=== PATIENT | female | born 2000 | race American Indian/Alaskan Native ===

== ENCOUNTER 2024-01-28 07:42 | Inpatient (IN) | payer OTHER ==
[2024-01-28] MEDS ORDERED: Carboprost Tromethamine 250 MCG/1 ML Amp IM PRN (08:17)
[2024-01-28] MEDS ORDERED: Sodium Chloride 0.9% 10 ML Syringe FLUSH PRN (08:17)
[2024-01-28] MEDS ORDERED: Ondansetron 4 MG/2 ML SDV IVPUSH PRN (08:17)
[2024-01-28] MEDS ORDERED: Misoprostol 400 MCG (4 X 100 MCG TAB) RECTAL PRN (08:17)
[2024-01-28] MEDS ORDERED: Acetaminophen 325 MG Tab PO PRN (08:17)
[2024-01-28 08:45] LABS: HEMATOCRIT 37.5 % (37.0-47.0); HEMOGLOBIN 12.1 g/dL (12.0-16.0); MEAN CORPUSCULAR HGB CONC 32.3 g/dL (33.0-35.0); MEAN CORPUSCULAR VOLUME 93.1 fL (80-100); RED BLOOD CELL COUNT 4.03 10^6/uL (4.2-5.4); WHITE BLOOD CELL COUNT,WBC 12.8 10^3/uL (5.0-10.0)
[2024-01-28] MEDS: Lactated Ringers 1,000 ML IV ONE (09:02)
[2024-01-28] MEDS ORDERED: fentaNYL 100 MCG/2 ML SDV ONE (09:20)
[2024-01-28] MEDS: Lactated Ringers 1,000 ML IV SCH (09:36)
[2024-01-28] MEDS ORDERED: Phenylephrine HCl In 0.9% NaCl 1 MG/10 ML Syringe IVPUSH PRN (10:01)
[2024-01-28] MEDS ORDERED: ePHEDrine 50 MG/ML SDV IVPUSH PRN (10:01)
[2024-01-28] MEDS ORDERED: Ropivacaine 200 MG in Premix Bag 1 BAG EPIDUR SCH (10:15)
[2024-01-28] MEDS: Oxytocin/Normal Saline 30 UNIT/500 ML BAG IV SCH (12:37)
[2024-01-28] MEDS ORDERED: Simethicone 80 MG Tab.Chew PO PRN (14:48)
[2024-01-28] MEDS ORDERED: Hydrocortisone 2.5% Crm 30 GM Tube TOP PRN (14:48)
[2024-01-28] MEDS ORDERED: Oxytocin 10 Units/1 ML SDV IM PRN (14:48)
[2024-01-28] MEDS: Tranexamic Acid 1,000 MG in Sodium Chloride 0.9% 100 ML IV PRN (15:24)
[2024-01-28] MEDS: Methylergonovine 0.2 MG/1 ML Amp IM PRN (15:25)
[2024-01-28] MEDS: Ibuprofen 800 MG Tab PO SCH (16:01)
[2024-01-28] MEDS: Benzocaine/Menthol 20%-0.5% Spray 78 GM Cannister TOP PRN (18:25)
[2024-01-28] MEDS: Witch Hazel Medicated Pads 100/Jar TOP PRN (18:26)
[2024-01-28] MEDS: Lidocaine 1% 30 ML SDV INJECT ONE (18:30)
[2024-01-28] MEDS: Acetaminophen 325 MG Tab PO PRN (19:50)
[2024-01-28] MEDS: Docusate Sodium 100 MG Cap PO PRN (19:50)
[2024-01-29 06:44] LABS: HEMATOCRIT 28.5 % (37.0-47.0); HEMOGLOBIN 9.2 g/dL (12.0-16.0); MEAN CORPUSCULAR HEMOGLOBIN 30.4 pg (27.0-34.0); MEAN CORPUSCULAR HGB CONC 32.3 g/dL (33.0-35.0); MEAN CORPUSCULAR VOLUME 94.1 fL (80-100); RED BLOOD CELL COUNT 3.03 10^6/uL (4.2-5.4); WHITE BLOOD CELL COUNT,WBC 13.3 10^3/uL (5.0-10.0)
[2024-01-29] MEDS: Prenatal Multivitamin with Calcium/Folic Acid/Iron Tab PO SCH (08:45)
[2024-01-29] MEDS ORDERED: fentaNYL 100 MCG/2 ML SDV EPIDUR ONE (13:34)
== END 2024-01-30 13:00 | disposition home or self-care (01) | DRG 807 ==
LOC: DL.OBCHECK 07:42 → DL.OB 08:17 → OBSVTOIN 14:10 → DL.OB 14:10
PROVIDERS: ADMIT Family Medicine; ATTEND Family Medicine
PROC: 10D07Z6 Extraction of Products of Conception, Vacuum, Via Natural or Artificial Opening (ICD-10-PCS; principal; 2024-01-28)
PROC: 0KQM0ZZ Repair Perineum Muscle, Open Approach (ICD-10-PCS; 2024-01-28)
PROC: 3E0R3BZ Introduction of Anesthetic Agent into Spinal Canal, Percutaneous Approach (ICD-10-PCS; 2024-01-28)
PROC: 00HU33Z Insertion of Infusion Device into Spinal Canal, Percutaneous Approach (ICD-10-PCS; 2024-01-28)
DX: O12.14 Gestational proteinuria, complicating childbirth (principal); Z37.0 Single live birth; Z3A.40 40 weeks gestation of pregnancy; O70.1 Second degree perineal laceration during delivery
CPT/HCPCS: 36415; 51701; 59409; 85027; A9270-GY; C1729; J2210; J2590; J3010; J3490; J7120

== ENCOUNTER 2024-09-10 13:14 | Emergency (ER) | payer OTHER ==
[2024-09-10 13:54] LABS: APPEARANCE,URINE SLIGHTLY CLOUDY (CLEAR); BILIRUBIN,URINE NEGATIVE (NEGATIVE); COLOR,URINE YELLOW (YELLOW); GLUCOSE,URINE NEGATIVE (NEGATIVE); KETONES,URINE NEGATIVE (NEGATIVE); LEUKOCYTE ESTERASE,URINE TRACE (NEGATIVE); NITRITE,URINE NEGATIVE (NEGATIVE); OCCULT BLOOD,URINE LARGE (NEGATIVE); PH,URINE 7.5 (5.0-9.0); PROTEIN,URINE 30 (NEGATIVE); UROBILINOGEN,URINE 0.2 mg/dL (0.2-1.0)
[2024-09-10 14:02] LABS: BACTERIA,URINE FEW /HPF (0-FEW/HPF); EPITHELIAL CELLS,URINE MODERATE /HPF (NOT SEEN); WBC,URINE 0-5 /HPF (0-5/HPF)
[2024-09-10 14:03] LABS: AMORPHOUS SEDIMENT,URINE FEW /HPF (NOT SEEN)
[2024-09-10] MEDS: Ketorolac 30 MG/ML SDV IM ONE (14:29)
== END 2024-09-10 14:52 | disposition home or self-care (01) ==
LOC: DL.ED 13:14
DX: N94.6 Dysmenorrhea, unspecified (principal); Z79.899 Other long term (current) drug therapy
CPT/HCPCS: 81001; 81025; 87086; 96372; 99283; 99284; J1885

== ENCOUNTER 2024-11-16 05:39 | Emergency (ER) | payer OTHER | END 2024-11-16 07:30 | disposition home or self-care (01) | LOC: DL.ED 05:39 | DX: S01.512A Laceration without foreign body of oral cavity, initial encounter (principal); Z79.899 Other long term (current) drug therapy; W22.8XXA Striking against or struck by other objects, initial encounter | CPT/HCPCS: 99282; 99283 ==

== ENCOUNTER 2025-01-27 22:11 | Emergency (ER) | payer OTHER ==
[2025-01-27 23:30] LABS: BASOPHILS PERCENT AUTO 0.4 % (0.0-1.0); EOSINOPHILS PERCENT AUTO 0.2 % (1.0-3.0); LYMPHOCYTES PERCENT AUTO 11.4 % (20.5-50.1); MONOCYTES PERCENT AUTO 7.1 % (2-8); NEUTROPHILS PERCENT AUTO 80.9 % (42.2-75.2); PLATELET COUNT,PLT 322 10^3/uL (150-450); RED BLOOD CELL COUNT 5.17 10^6/uL (4.2-5.4); WHITE BLOOD CELL COUNT,WBC 11.4 10^3/uL (5.0-10.0)
[2025-01-27] MEDS: Thiamine 100 MG in Sodium Chloride 0.9% 1,000 ML IV ONE (23:33)
[2025-01-27] MEDS: Ketorolac 30 MG/ML SDV IM ONE (23:33)
[2025-01-27] MEDS: Ondansetron 4 MG/2 ML SDV IVPUSH ONE (23:33)
[2025-01-27 23:44] LABS: A/G RATIO 0.9; ALANINE AMINOTRANSFERASE,ALT 26 U/L (14-59); ASPARTATE AMNIOTRANSFERASE,AST 18 U/L (15-37); BILIRUBIN TOTAL 0.2 mg/dL (0.2-1.0); BLOOD UREA NITROGEN,BUN 6 mg/dL (7-18); CARBON DIOXIDE,CO2 21 mmol/L (21-32); CHLORIDE,CL 108 mmol/L (98-107); CREATININE 0.88 mg/dL (0.55-1.02); ETHANOL BLOOD MEDICAL 261 mg/dL (0); GLUCOSE RANDOM 106 mg/dL (70-99); POTASSIUM,K 3.2 mmol/L (3.5-5.1); PROTEIN TOTAL,TP 8.3 g/dL (6.4-8.2); SODIUM,NA 144 mmol/L (136-145)
[2025-01-27 23:50] LABS: ESTIMATED GFR 93 mL/min (>=60)
[2025-01-28 00:14] LABS: AMPHETAMINES,URINE NEGATIVE (NEGATIVE); BARBITURATES,URINE NEGATIVE (NEGATIVE); MDMA (ECSTASY), URINE NEGATIVE (NEGATIVE); METHAMPHETAMINES,URINE NEGATIVE (NEGATIVE); OPIATES,URINE NEGATIVE (NEGATIVE); OXYCODONE,URINE NEGATIVE (NEGATIVE); PHENCYCLIDINE,URINE NEGATIVE (NEGATIVE); TCA,URINE NEGATIVE (NEGATIVE)
== END 2025-01-28 00:08 | disposition home or self-care (01) ==
LOC: DL.ED 22:11
DX: S00.83XA Contusion of other part of head, initial encounter (principal); S80.212A Abrasion, left knee, initial encounter; S80.211A Abrasion, right knee, initial encounter; S50.312A Abrasion of left elbow, initial encounter; S50.311A Abrasion of right elbow, initial encounter; Z79.899 Other long term (current) drug therapy; Z86.16 Personal history of COVID-19; W22.8XXA Striking against or struck by other objects, initial encounter; Y04.0XXA Assault by unarmed brawl or fight, initial encounter
CPT/HCPCS: 36415; 70450; 70486; 72125; 80053; 80305; 80307; 81025; 85025; 96365; 96372; 96375; 99282; 99284; J1885; J2405; J3411

== ENCOUNTER 2025-03-10 03:42 | Emergency (ER) | payer OTHER ==
[2025-03-10] MEDS ORDERED: Sodium Chloride 0.9% 10 ML Syringe FLUSH PRN (04:07)
[2025-03-10 04:57] LABS: A/G RATIO 1.0; ALANINE AMINOTRANSFERASE,ALT 17 U/L (14-59); ASPARTATE AMNIOTRANSFERASE,AST 9 U/L (15-37); BILIRUBIN TOTAL 0.5 mg/dL (0.2-1.0); BLOOD UREA NITROGEN,BUN 9 mg/dL (7-18); CARBON DIOXIDE,CO2 24 mmol/L (21-32); CHLORIDE,CL 103 mmol/L (98-107); CREATININE 0.77 mg/dL (0.55-1.02); EST CRCL DRUG DOSING (CG) 104.56 mL/min; GLUCOSE RANDOM 120 mg/dL (70-99); POTASSIUM,K 4.0 mmol/L (3.5-5.1); PROTEIN TOTAL,TP 7.3 g/dL (6.4-8.2); SODIUM,NA 137 mmol/L (136-145)
[2025-03-10 04:59] LABS: BASOPHILS PERCENT AUTO 0.1 % (0.0-1.0); EOSINOPHILS PERCENT AUTO 0.1 % (1.0-3.0); LYMPHOCYTES PERCENT AUTO 5.8 % (20.5-50.1); MONOCYTES PERCENT AUTO 5.6 % (2-8); NEUTROPHILS PERCENT AUTO 88.4 % (42.2-75.2); PLATELET COUNT,PLT 278 10^3/uL (150-450); RED BLOOD CELL COUNT 4.46 10^6/uL (4.2-5.4); WHITE BLOOD CELL COUNT,WBC 14.6 10^3/uL (5.0-10.0)
[2025-03-10 05:01] LABS: ESTIMATED GFR 110 mL/min (>=60); ETHANOL BLOOD MEDICAL < 3 mg/dL (0)
[2025-03-10 05:32] LABS: AMPHETAMINES,URINE NEGATIVE (NEGATIVE); BARBITURATES,URINE NEGATIVE (NEGATIVE); MDMA (ECSTASY), URINE NEGATIVE (NEGATIVE); METHAMPHETAMINES,URINE NEGATIVE (NEGATIVE); OPIATES,URINE NEGATIVE (NEGATIVE); OXYCODONE,URINE NEGATIVE (NEGATIVE); PHENCYCLIDINE,URINE NEGATIVE (NEGATIVE); TCA,URINE NEGATIVE (NEGATIVE)
[2025-03-10 05:33] LABS: APPEARANCE,URINE SLIGHTLY CLOUDY (CLEAR); GLUCOSE,URINE NEGATIVE (NEGATIVE); OCCULT BLOOD,URINE LARGE (NEGATIVE)
[2025-03-10 05:42] LABS: EPITHELIAL CELLS,URINE FEW /HPF (NOT SEEN)
[2025-03-10] MEDS: metroNIDAZOLE/Normal Saline 500 MG in Premix Bag 1 BAG IV ONE (06:32)
[2025-03-10] MEDS: Ketorolac 30 MG/ML SDV IVPUSH ONE (07:12)
[2025-03-10] MEDS: Ondansetron 4 MG/2 ML SDV IVPUSH ONE (07:40)
== END 2025-03-10 08:07 ==
LOC: DL.ED 03:42
DX: K35.30 Acute appendicitis with localized peritonitis, without perforation or gangrene (principal); E66.9 Obesity, unspecified; F17.210 Nicotine dependence, cigarettes, uncomplicated; Z68.33 Body mass index [BMI] 33.0-33.9, adult
CPT/HCPCS: 36415; 74176; 80053; 80305-QW; 80307; 81001; 81025; 83690; 83735; 85025; 96365; 96375; 99285; 99285-25; J0696; J1171; J1836; J1885; J2405; J7030

== ENCOUNTER 2025-03-22 02:36 | Emergency (ER) | payer OTHER ==
[2025-03-22 03:40] LABS: PLATELET COUNT,PLT 186 10^3/uL (150-450); RED BLOOD CELL COUNT 4.78 10^6/uL (4.2-5.4); WHITE BLOOD CELL COUNT,WBC 6.2 10^3/uL (5.0-10.0)
[2025-03-22 03:42] LABS: BASOPHILS PERCENT AUTO 0.3 % (0.0-1.0); EOSINOPHILS PERCENT AUTO 0.3 % (1.0-3.0); LYMPHOCYTES PERCENT AUTO 68.2 % (20.5-50.1); MONOCYTES PERCENT AUTO 11.3 % (2-8); NEUTROPHILS PERCENT AUTO 19.9 % (42.2-75.2)
[2025-03-22 04:32] LABS: A/G RATIO 0.8; ALANINE AMINOTRANSFERASE,ALT 48 U/L (14-59); ASPARTATE AMNIOTRANSFERASE,AST 31 U/L (15-37); BILIRUBIN TOTAL 0.3 mg/dL (0.2-1.0); BLOOD UREA NITROGEN,BUN 4 mg/dL (7-18); CARBON DIOXIDE,CO2 20 mmol/L (21-32); CHLORIDE,CL 106 mmol/L (98-107); CREATININE 0.75 mg/dL (0.55-1.02); ETHANOL BLOOD MEDICAL 115 mg/dL (0); GLUCOSE RANDOM 87 mg/dL (70-99); POTASSIUM,K 3.8 mmol/L (3.5-5.1); PROTEIN TOTAL,TP 8.0 g/dL (6.4-8.2); SODIUM,NA 137 mmol/L (136-145)
[2025-03-22 04:34] LABS: ESTIMATED GFR 113 mL/min (>=60)
[2025-03-22 04:44] LABS: LYMPHOCYTES PERCENT MAN 69 % (20-50); SEG NEUTROPHILS PERCENT MAN 21 % (42-75)
[2025-03-22 04:45] LABS: MONOCYTES PERCENT MAN 10 % (2-8)
== END 2025-03-22 05:23 | disposition home or self-care (01) ==
LOC: DL.ED 02:36
DX: S09.90XA Unspecified injury of head, initial encounter (principal); Z86.16 Personal history of COVID-19; V49.59XA Passenger injured in collision with other motor vehicles in traffic accident, initial encounter
CPT/HCPCS: 36415; 70450; 72125; 73030-RT; 73080-RT; 80053; 80307; 83735; 84703; 85025; 99283; 99285